=== PATIENT | male | born 1985 | race Caucasian/White ===

== ENCOUNTER 2021-09-25 20:44 | Emergency (ER) | payer OTHER ==
[2021-09-25 22:16] LABS: Urine Blood Negative (Negative); Urine Glucose Negative (Negative); Urine Protein Negative (Negative); Urine Specific Gravity 1.025 (1.005-1.030); Urine pH 7.5 (5.0-7.0)
--- NOTE | 2021-09-26 00:40 | ER ---
Nurse's Notes [facility] Name: Sunny Nash Age: 36 yrs Sex: Male : 1985 Arrival Date: 09/25/2021 Time: 20:49 Bed Waiting Private MD: Diagnosis: STI Exposure Presentation: 09/25 23:10 Chief complaint: Patient states: Denies any symptoms. "My girlfriend thinks I have a mw STD because she said my penis smells rotten.". 23:10 Method Of Arrival: Ambulatory 23:10 Acuity: ALBERTO 4 09/26 01:00 Coronavirus screen: At this time, the client does not indicate any symptoms associated lp1 with coronavirus-19. Ebola Screen: No symptoms or risks identified at this time. Initial Sepsis Screen: Does the patient meet any 2 criteria? No. Patient's initial sepsis screen is negative. Does the patient have a suspected source of infection? No. Patient's initial sepsis screen is negative. Risk Assessment: Do you want to hurt yourself or someone else? Patient reports no desire to harm self or others. Onset of symptoms was September 26, 2021. Screenin:00 Abuse screen: Denies threats or abuse. Denies injuries from another. Nutritional lp1 screening: No deficits noted. Tuberculosis screening: No symptoms or risk factors identified. Fall Risk None identified. Assessment: 00:30 General: Appears in no apparent distress. Behavior is appropriate for age. lp1 00:30 Pain: Denies pain. Neuro: No deficits noted. Cardiovascular: Patient's skin is warm and lp1 dry. Respiratory: No deficits noted. GI: No signs and/or symptoms were reported involving the gastrointestinal system. : No signs and/or symptoms were reported regarding the genitourinary system. EENT: No signs and/or symptoms were reported regarding the EENT system. Derm: Skin is pink, warm \\T\\ dry. Musculoskeletal: No deficits noted. Vital Signs: 09/25 23:10 BP 166 / 89; Pulse 76; Resp 16; Temp 98.0; Pulse Ox 98% ; Weight 56.7 kg; Height 5 ft. mw 6 in. (167.64 cm); Pain 0/10; 23:10 Body Mass Index 20.18 (56.70 kg, 167.64 cm) ED Course: 20:49 Patient arrived in ED. cf2 21:06 Ant Caballero PA is PHCP. [facility] 21:06 Eran Diane MD is Attending Physician. [facility] 22:19 Urine collected: clean catch specimen, clear, urine micro and culture sent to lab. 2 23:12 Triage completed. 09/26 01:00 No provider procedures requiring assistance completed. Patient did not have IV access lp1 during this emergency room visit. 01:00 Patient has correct armband on for positive identification. lp1 Administered Medications: No medications were administered Outcome: 00:39 Discharge ordered by MD. [facility] 01:05 Discharged to home ambulatory. [facility] 01:05 Condition: good 01:05 Discharge instructions given to patient, Instructed on discharge instructions, follow up and referral plans. medication usage, Demonstrated understanding of instructions, follow-up care, medications, Prescriptions given X 2. 01:05 Patient left the ED. 1 Signatures: Jeanette Lucero RN RN Ant Caballero PA PA [facility] Mili Mina RN RN [facility] Gregory Maloney 2 Randi Ulrich cf2 Corrections: (The following items were deleted from the chart) 03:44 03:42 General: Appears in no apparent distress. Behavior is appropriate for age, lp1 lp1 03:44 03:42 General: Appears in no apparent distress. Behavior is appropriate for age, lp1 lp1 03:44 03:43 Pain: Denies pain. lp1 lp1 03:44 03:43 Neuro: No deficits noted. lp1 lp1 03:44 03:43 Cardiovascular: Patient's skin is warm and dry. lp1 lp1 03:44 03:43 Respiratory: No deficits noted. lp1 lp1 03:44 03:43 GI: No signs and/or symptoms were reported involving the gastrointestinal system. lp1 lp1 03:44 03:43 : No signs and/or symptoms were reported regarding the genitourinary system. lp1l 03:44 03:43 EENT: No signs and/or symptoms were reported regarding the EENT system. lp1 lp1 03:44 03:43 Derm: Skin is pink, warm \\T\\ dry. lp1 lp1 03:44 03:43 Musculoskeletal: No deficits noted. lp1 lp1
--- NOTE | 2021-09-26 00:40 | EDPHYS ---
Physician Documentation [facility] Name: Sunny Nash Age: 36 yrs Sex: Male : 1985 Arrival Date: 09/25/2021 Time: 20:49 Bed Waiting Private MD: ED Physician Eran Diane HPI: 09/26 00:37 This 36 yrs old Male presents to ER via Ambulatory with complaints of POSSIBLE STD. jmm 00:37 The patient presents with a possible STD exposure. Onset: The symptoms/episode jmm began/occurred at an unknown time. Modifying factors: The symptoms are alleviated by nothing, the symptoms are aggravated by nothing. Associated signs and symptoms: Pertinent negatives: abdominal pain, constipation, dysuria, fever. The patient has not experienced similar symptoms in the past. ROS: 00:37 Constitutional: Negative for fever, chills, and weight loss, Cardiovascular: Negative jmm for chest pain, palpitations, and edema, Respiratory: Negative for shortness of breath, cough, wheezing, and pleuritic chest pain, Abdomen/GI: Negative for abdominal pain, nausea, vomiting, diarrhea, and constipation, Neuro: Negative for headache, weakness, numbness, tingling, and seizure. 00:37 All other systems are negative. Exam: 00:37 Constitutional: This is a well developed, well nourished patient who is awake, alert, jmm and in no acute distress. Head/Face: atraumatic. Eyes: EOMI, no conjunctival erythema appreciated ENT: Moist Mucus Membranes Neck: Trachea midline, Supple Chest/axilla: Normal chest wall appearance and motion. Cardiovascular: Regular rate and rhythm. No edema appreciated Respiratory: Normal respirations, no respiratory distress appreciated Abdomen/GI: Non distended, soft Back: Normal ROM Skin: General appearance color normal MS/ Extremity: Moves all extremities, no obvious deformities appreciated, no edema noted to the lower extremities Neuro: Awake and alert, normal gait Psych: Behavior is normal, Mood is normal, Patient is cooperative and pleasant Vital Signs: 09/25 23:10 BP 166 / 89; Pulse 76; Resp 16; Temp 98.0; Pulse Ox 98% ; Weight 56.7 kg; Height 5 ft. mw 6 in. (167.64 cm); Pain 0/10; 23:10 Body Mass Index 20.18 (56.70 kg, 167.64 cm) mw MDM: 09/26 00:03 Patient medically screened. [facility] 00:38 Data reviewed: vital signs, nurses notes. Counseling: I had a detailed discussion with [facility] the patient and/or guardian regarding: the historical points, exam findings, and any diagnostic results supporting the discharge/admit diagnosis, the need for outpatient follow up, to return to the emergency department if symptoms worsen or persist or if there are any questions or concerns that arise at home. 09/25 22:15 Order name: Urine Dipstick-Ancillary; Complete Time: 22:58 EDMS 09/25 22:17 Order name: GC (Ross/Chl) Probe URINE EDMS 09/25 22:18 Order name: Urine Dipstick-Ancillary (obtain specimen); Complete Time: 22:18 lp1 Administered Medications: No medications were administered Disposition: 06:07 Co-signature as Attending Physician, Eran Diane MD. [email or web address] Disposition Summary: 09/26/21 00:39 Discharge Ordered Location: Home [facility] Condition: Stable [facility] Diagnosis - STI Exposure [facility] Followup: [facility] - With: Private Physician - When: 2 - 3 days - Reason: Recheck today's complaints, Continuance of care, Re-evaluation by your physician Discharge Instructions: - Discharge Summary Sheet [facility] - Preventing Sexually Transmitted Infections, Adult [facility] Forms: - Medication Reconciliation Form [facility] - Thank You Letter [facility] - Antibiotic Education [facility] - Prescription Opioid Use [facility] Prescriptions: - cefdinir 300 mg Oral capsule - take 1 capsule by ORAL route every 12 hours for 10 days; 20 capsule; Refills: [facility] 0, Product Selection Permitted - Zithromax 1 gram Oral Packet - take 1 packet by ORAL route one time as a single dose; 1 packet; Refills: 0, [facility] Product Selection Permitted Signatures: Dispatcher [employer] [facility] Ant Caballero PA PA [facility] Mili Mina RN RN lp1 Eran Diane MD MD [email or web address]
[2021-09-26 01:17] VITALS: BP 166/89; TEMP 98; O2SAT 98
[2021-09-30 04:15] LABS: C.trachomatis RNA,TMA Not Detected (Not Detected)
== END 2021-09-26 01:05 | disposition home or self-care (01) ==
LOC: ER 20:44
DX: Z20.2 Contact with and (suspected) exposure to infections with a predominantly sexual mode of transmission (principal)
CPT/HCPCS: 81003; 87490; 87590; 99283